=== PATIENT | female | born 1955 | race Caucasian/White ===

== ENCOUNTER → 2016-07-28 | Outpatient (CLI) | payer BC ==
[~2016-07-28] MED LIST: LATANOPROST 2.2.5 ML OU
== END ==
LOC: RAD 12:39
DX: K37 Unspecified appendicitis (principal); R10.31 Right lower quadrant pain; R50.9 Fever, unspecified
CPT/HCPCS: Q9967

== ENCOUNTER 2016-11-27 01:47 | Emergency (ER) | payer BC ==
[~2016-11-27] VITALS: Ht 165.1 cm; Wt 103.6 kg
[2016-11-27] MEDS ORDERED: LATANOPROST 2.2.5 ML OU (01:52)
[2016-11-27 03:58] VITALS: BP 154/90
== END 2016-11-27 03:58 | disposition home or self-care (01) ==
LOC: ED 01:47
DX: R00.2 Palpitations (principal); E05.90 Thyrotoxicosis, unspecified without thyrotoxic crisis or storm; I10 Essential (primary) hypertension

== ENCOUNTER → 2018-12-05 | Outpatient (CLI) | payer BC | LOC: RAD 09:57 | DX: M17.0 Bilateral primary osteoarthritis of knee (principal) ==

== ENCOUNTER → 2019-01-07 | Outpatient (CLI) | payer BC ==
[2019-01-07 14:49] LABS: BASO # 0.1 (0.02-0.10); EOS # 0.2 (0.04-0.40); EOS % 1.7 % (1.0-5.0); HEMATOCRIT 44.4 % (37.0-47.0); HEMOGLOBIN 14.3 g/dL (12.5-16.0); LYMPH# 2.2 (1.50-4.00); MEAN CELL VOLUME 88 fl (78-100); MEAN CORPUSCULAR HEMOGLOBIN 29 pg (27-31); MEAN CORPUSCULAR HGB CONC 32 g/dL (33-37); MEAN PLATELET VOLUME 9.3 fl (7.4-10.4); MONO # 0.6 (0.20-0.80); NEU # 6.3 (1.40-6.50); PLATELET COUNT 433 K/mm3 (130-400); RED BLOOD COUNT 5.02 M/mm3 (4.10-5.30); RED CELL DISTRIBUTION WIDTH 13.9 % (11.5-14.5); WHITE BLOOD COUNT 9.4 K/mm3 (4.8-10.8)
[2019-01-07 15:13] LABS: ALBUMIN 4.2 g/dL (3.4-4.8); POTASSIUM 4.2 mmol/L (3.5-5.1)
[2019-01-07 15:14] LABS: CALCIUM 10.1 mg/dL (8.3-10.5)
[2019-01-07 15:15] LABS: TOTAL PROTEIN 7.6 g/dL (6.2-8.1)
[2019-01-07 15:17] LABS: TOTAL BILIRUBIN 0.6 mg/dL (0.2-1.2)
== END ==
LOC: LAB 14:31
PROVIDERS: Family Medicine
DX: Z01.419 Encounter for gynecological examination (general) (routine) without abnormal findings (principal); E78.5 Hyperlipidemia, unspecified; E55.9 Vitamin D deficiency, unspecified; E05.90 Thyrotoxicosis, unspecified without thyrotoxic crisis or storm

== ENCOUNTER → 2019-01-10 | Outpatient (CLI) | payer BC | LOC: RAD 15:30 | DX: E05.20 Thyrotoxicosis with toxic multinodular goiter without thyrotoxic crisis or storm (principal) ==

== ENCOUNTER → 2022-03-24 | Outpatient (CLI) | payer BC | LOC: LAB 12:05 | DX: N30.01 Acute cystitis with hematuria (principal); R30.9 Painful micturition, unspecified ==